=== PATIENT | female | born 2000 | race Caucasian/White ===

== ENCOUNTER 2023-08-03 21:48 | Emergency (ER) | payer MEDICARE ==
[~2023-08-03] VITALS: Ht 165.1 cm; Wt 127.0 kg
== END 2023-08-03 23:14 | disposition home or self-care (01) ==
LOC: ED 21:48
DX: R20.2 Paresthesia of skin (principal); I10 Essential (primary) hypertension; Z88.0 Allergy status to penicillin; Z88.1 Allergy status to other antibiotic agents; Z88.5 Allergy status to narcotic agent; Z88.8 Allergy status to other drugs, medicaments and biological substances

== ENCOUNTER 2024-04-06 17:52 | Emergency (ER) | payer BC, OTHER ==
[~2024-04-06] VITALS: Ht 165.1 cm; Wt 136.1 kg
[2024-04-06 18:59] LABS: BILIRUBIN Negative (Negative); BLOOD Negative (Negative); CLARITY Cloudy (Clear); COLOR Yellow (Yellow); GLUCOSE 3+ (Negative); KETONE Trace (Negative); LEUKO ESTERASE 1+ (Negative); NITRITE Negative (Negative); PH 5.5 (4.5-8.0); SPECIFIC GRAVITY >= 1.030 (1.001-1.030); UROBILINOGEN 0.2 E.U./dl (0.0-1.0)
[2024-04-06 19:07] LABS: VENOUS BLOOD GAS O2 SAT 90.8 % (60.0-85.0)
[2024-04-06 19:08] LABS: BASO # 0.1 10*3/uL (0.0-0.1); BASO % 0.6 % (0.0-1.0); EOS # 0.1 10*3/uL (0.0-0.4); EOS % 1.1 % (1.0-4.0); HEMATOCRIT 44.6 % (37.0-47.0); LYMPH # 3.4 10*3/uL (1.3-4.4); LYMPH % 31.7 % (27.0-41.0); MEAN CELL VOLUME 76.5 fl (81.0-99.0); MEAN CORPUSCULAR HGB CONC 32.7 g/dl (33.0-37.0); MEAN PLATELET VOLUME 10.1 fl (9.6-12.3); MONO # 0.9 10*3/uL (0.1-1.0); NEUT # 6.3 10*3/uL (2.3-7.9); NEUT % 58.2 % (47.0-73.0); PLATELET COUNT AUTOMATED 282 10*3/uL (130-400); RED BLOOD COUNT 5.83 10*6/uL (4.10-5.10); RED CELL DISTRI WIDTH 14.2 % (0-14.5); WHITE BLOOD COUNT 10.9 10*3/uL (4.8-10.8)
[2024-04-06 19:10] LABS: BACTERIA 1+; MUCOUS 1+; RBC 0-2 rbc/hpf (0-2); WBC 16-20 wbc/hpf (0-5)
[2024-04-06] MEDS ORDERED: SODIUM CHLORIDE 0.9% 1,000 ML IV SCH (19:20)
[2024-04-06 19:23] LABS: ACT PARTIAL THROMBO TIME 28.6 SECONDS (20.0-32.1)
[2024-04-06 19:29] LABS: ALKALINE PHOSPHATASE 138 U/L (46-116); BUN 9 mg/dl (9-23); CHLORIDE 102 mmol/L (98-107); POTASSIUM 4.1 mmol/L (3.4-5.1); SGPT/ALT 47 U/L (5-49); TOTAL PROTEIN 7.7 gm/dL (6.0-8.0)
[2024-04-06] MEDS ORDERED: INSULIN REGULAR, HUMAN 1 UNIT/0.01 ML IV ONE (19:35)
[2024-04-06] MEDS ORDERED: Nitrofurantoin Monohydrate/N 100 MG CAP PO ONE (20:50)
== END 2024-04-06 22:03 | disposition home or self-care (01) ==
LOC: ED 17:52
PROVIDERS: Nurse Practitioner
DX: E11.65 Type 2 diabetes mellitus with hyperglycemia (principal); N39.0 Urinary tract infection, site not specified; I10 Essential (primary) hypertension; R10.2 Pelvic and perineal pain; Z88.0 Allergy status to penicillin; Z88.1 Allergy status to other antibiotic agents; Z88.5 Allergy status to narcotic agent; Z88.8 Allergy status to other drugs, medicaments and biological substances; Z87.891 Personal history of nicotine dependence

== ENCOUNTER → 2024-04-08 | Outpatient (CLI) | payer BC, OTHER | END | disposition home or self-care (01) | LOC: WOUNDCARE 01:17 → LAB 01:17 | PROVIDERS: ATTEND Nurse Practitioner Family | DX: E11.621 Type 2 diabetes mellitus with foot ulcer (principal); L97.511 Non-pressure chronic ulcer of other part of right foot limited to breakdown of skin; L84 Corns and callosities; E11.65 Type 2 diabetes mellitus with hyperglycemia; I10 Essential (primary) hypertension; E66.01 Morbid (severe) obesity due to excess calories; F32.A Depression, unspecified; F41.9 Anxiety disorder, unspecified; F17.210 Nicotine dependence, cigarettes, uncomplicated; Z68.42 Body mass index [BMI] 45.0-49.9, adult; Z79.4 Long term (current) use of insulin; Z79.899 Other long term (current) drug therapy ==

== ENCOUNTER → 2024-04-10 | Outpatient (CLI) | payer BC, OTHER | END | disposition home or self-care (01) | LOC: LAB 08:37 | PROVIDERS: ATTEND Registered Nurse | DX: E11.9 Type 2 diabetes mellitus without complications (principal); R00.0 Tachycardia, unspecified ==

== ENCOUNTER → 2024-04-14 | Outpatient (CLI) | payer BC, OTHER | END | disposition home or self-care (01) | LOC: WOUNDCARE 02:42 | PROVIDERS: ATTEND Nurse Practitioner Family | DX: E11.621 Type 2 diabetes mellitus with foot ulcer (principal); L97.511 Non-pressure chronic ulcer of other part of right foot limited to breakdown of skin; E11.65 Type 2 diabetes mellitus with hyperglycemia; E66.01 Morbid (severe) obesity due to excess calories; I10 Essential (primary) hypertension; F17.200 Nicotine dependence, unspecified, uncomplicated; F32.A Depression, unspecified; F41.9 Anxiety disorder, unspecified; Z68.42 Body mass index [BMI] 45.0-49.9, adult ==

== ENCOUNTER → 2024-04-16 | Outpatient (CLI) | payer BC, OTHER ==
[~2024-04-16] MED LIST: ADMELOG100 UNIT/1 SQ; BUSPIRONE HCL15 MG PO; CLEOCIN HCL300 MG PO; DULOXETINE HCL60 MG PO; HALOPERIDOL2 M1 PO; HYDROXYZINE PAM50 MG PO; INSULIN LI100 UNIT/1 SQ; LANTUS100 UNIT/1 SQ; LISINOPRIL40 MG PO; METOPROLOL SUCC25 M2 PO; MINIPRESS2 M1 PO; MIRTAZAPINE15 M2 PO; PANTOPRAZOLE SO40 MG PO; REXULTI2 MG PO; SEROQUEL XR200 MG PO; SILVADENE,SSD C50 GM T
== END | disposition home or self-care (01) ==
LOC: WOUNDCARE 15:57
PROVIDERS: ATTEND Nurse Practitioner Family
DX: E11.621 Type 2 diabetes mellitus with foot ulcer (principal); L97.511 Non-pressure chronic ulcer of other part of right foot limited to breakdown of skin; L84 Corns and callosities; E11.65 Type 2 diabetes mellitus with hyperglycemia; I10 Essential (primary) hypertension; E66.01 Morbid (severe) obesity due to excess calories; F32.A Depression, unspecified; F41.9 Anxiety disorder, unspecified; F17.210 Nicotine dependence, cigarettes, uncomplicated; Z68.42 Body mass index [BMI] 45.0-49.9, adult; Z79.4 Long term (current) use of insulin; Z79.899 Other long term (current) drug therapy

== ENCOUNTER 2024-04-19 09:23 | Inpatient (IN) | payer BC, OTHER ==
[~2024-04-19] VITALS: Ht 165.1 cm; Wt 138.3 kg
[2024-04-19 09:29] VITALS: BP 131/100
[2024-04-19 09:34] VITALS: BP 148/89
[2024-04-19 10:14] LABS: BASO % 0.5 % (0.0-1.0); EOS # 0.1 10*3/uL (0.0-0.4); EOS % 1.4 % (1.0-4.0); HEMATOCRIT 41.7 % (37.0-47.0); LYMPH # 1.5 10*3/uL (1.3-4.4); LYMPH % 25.9 % (27.0-41.0); MEAN CELL VOLUME 78.1 fl (81.0-99.0); MEAN CORPUSCULAR HGB 25.1 pg (27.0-31.0); MEAN CORPUSCULAR HGB CONC 32.1 g/dl (33.0-37.0); MEAN PLATELET VOLUME 10.2 fl (9.6-12.3); MONO # 0.7 10*3/uL (0.1-1.0); MONO % 11.4 % (3.0-9.0); NEUT # 3.4 10*3/uL (2.3-7.9); NEUT % 60.4 % (47.0-73.0); PLATELET COUNT AUTOMATED 250 10*3/uL (130-400); RED BLOOD COUNT 5.34 10*6/uL (4.10-5.10); WHITE BLOOD COUNT 5.7 10*3/uL (4.8-10.8)
[2024-04-19] MEDS ORDERED: Dexamethasone Sodium Phospha 20 MG/5 ML VIAL IV ONE (10:15)
[2024-04-19] MEDS ORDERED: Vancomycin Hydrochloride 250 ML IV ONE (10:15)
[2024-04-19 10:33] LABS: BUN 12 mg/dl (9-23); CHLORIDE 102 mmol/L (98-107); POTASSIUM 4.7 mmol/L (3.4-5.1)
[2024-04-19] MEDS ORDERED: SODIUM CHLORIDE 0.9% 1,000 ML IV ONE (10:50)
[2024-04-19] MEDS ORDERED: ACETAMINOPHEN 325 MG TAB PO PRN (11:10)
[2024-04-19] MEDS ORDERED: Magnesium Hydroxide 30 ML UDC PO PRN (11:10)
[2024-04-19] MEDS ORDERED: ACETAMINOPHEN 650 MG SUPP R PRN (11:10)
[2024-04-19] MEDS ORDERED: BISACODYL 10 MG SUPP R PRN (11:10)
[2024-04-19] MEDS ORDERED: BISACODYL 5 MG TAB PO PRN (11:10)
[2024-04-19] MEDS ORDERED: Ondansetron Hydrochloride 4 MG/2 ML VIAL IV PRN (11:10)
[2024-04-19] MEDS ORDERED: BUSPIRONE HCL15 MG PO (13:09)
[2024-04-19] MEDS ORDERED: HALOPERIDOL2 M1 PO (13:09)
[2024-04-19] MEDS ORDERED: HYDROXYZINE PAM50 MG PO (13:10)
[2024-04-19] MEDS ORDERED: MINIPRESS2 M1 PO (13:10)
[2024-04-19] MEDS ORDERED: LANTUS100 UNIT/1 SQ (13:12)
[2024-04-19] MEDS ORDERED: DULOXETINE HCL60 MG PO (13:13)
[2024-04-19] MEDS ORDERED: INSULIN LI100 UNIT/1 SQ (13:13)
[2024-04-19] MEDS ORDERED: METOPROLOL SUCC25 M2 PO (13:14)
[2024-04-19] MEDS ORDERED: MIRTAZAPINE15 M2 PO (13:14)
[2024-04-19] MEDS ORDERED: LISINOPRIL40 MG PO (13:14)
[2024-04-19] MEDS ORDERED: PANTOPRAZOLE SO40 MG PO (13:15)
[2024-04-19] MEDS ORDERED: REXULTI2 MG PO (13:15)
[2024-04-19] MEDS ORDERED: SEROQUEL XR200 MG PO (13:16)
[2024-04-19] MEDS ORDERED: DEXTROSE 10 % IN WATER 250 ML IV PRN (13:20)
[2024-04-19 13:59] VITALS: BP 124/59
[2024-04-19 16:00] VITALS: BP 129/63
[2024-04-19] MEDS ORDERED: INSULIN LISPRO 1 UNIT/0.01 ML SQ SCH (16:30)
[2024-04-19] MEDS ORDERED: Vancomycin Hydrochloride 1,000 MG in SODIUM CHLORIDE 0.9% 250 ML IV SCH (18:00)
[2024-04-19 20:00] VITALS: BP 110/55
[2024-04-19] MEDS ORDERED: FOAM BANDAGE 5X5 T ONE (20:31)
[2024-04-19] MEDS ORDERED: busPIRone Hydrochloride 15 MG TAB PO SCH (22:00)
[2024-04-19] MEDS ORDERED: Doxycycline Hyclate 100 MG CAP PO SCH (22:00)
[2024-04-19] MEDS ORDERED: hydrOXYzine pamoate 25 MG CAP PO SCH (22:00)
[2024-04-19] MEDS ORDERED: SILVER SULFADIAZINE 25 GM TUBE T SCH (22:00)
[2024-04-19] MEDS ORDERED: LIDOCAINE 5% ANORECTAL CREAM T SCH (22:00)
[2024-04-19] MEDS ORDERED: BREXPIPRAZOLE 2 MG TABLET PO SCH (22:00)
[2024-04-19] MEDS ORDERED: Duloxetine Hydrochloride 60 MG CAP PO SCH (22:00)
[2024-04-19] MEDS ORDERED: HALOPERIDOL 1 MG TAB PO SCH (22:00)
[2024-04-19] MEDS ORDERED: QUETIAPINE FUMARATE 100 MG TAB PO SCH (22:00)
[2024-04-19] MEDS ORDERED: Pantoprazole Sodium 40 MG TAB PO SCH (22:00)
[2024-04-19] MEDS ORDERED: Prazosin Hydrochloride 1 MG CAP PO SCH (22:00)
[2024-04-19] MEDS ORDERED: Mirtazapine 15 MG TAB PO SCH (22:00)
[2024-04-19] MEDS ORDERED: Insulin Glargine, Recombinan 1 UNIT/0.01 ML SC SCH (22:00)
[2024-04-20] VITALS: BP 114/58; BP 126/66
[2024-04-20 05:53] LABS: VITAMIN D, 25-HYDROXY 37.9 ng/mL (30-100)
[2024-04-20 05:56] LABS: BUN 13 mg/dl (9-23); CHLORIDE 101 mmol/L (98-107); CHOLESTEROL 171 mg/dL (<200); LDL CHOLESTEROL 100 mg/dL (9-159); POTASSIUM 4.4 mmol/L (3.4-5.1); TRIGLYCERIDES 138 mg/dl (<150)
[2024-04-20 06:14] LABS: BASO % 0.3 % (0.0-1.0); EOS % 0.1 % (1.0-4.0); HEMATOCRIT 41.1 % (37.0-47.0); LYMPH % 19.1 % (27.0-41.0); MEAN CELL VOLUME 77.7 fl (81.0-99.0); MEAN CORPUSCULAR HGB 25.5 pg (27.0-31.0); MEAN CORPUSCULAR HGB CONC 32.8 g/dl (33.0-37.0); MEAN PLATELET VOLUME 10.5 fl (9.6-12.3); MONO # 0.7 10*3/uL (0.1-1.0); MONO % 6.8 % (3.0-9.0); NEUT # 7.6 10*3/uL (2.3-7.9); NEUT % 73.2 % (47.0-73.0); PLATELET COUNT AUTOMATED 297 10*3/uL (130-400); RED BLOOD COUNT 5.29 10*6/uL (4.10-5.10); RED CELL DISTRI WIDTH 14.4 % (0-14.5); WHITE BLOOD COUNT 10.3 10*3/uL (4.8-10.8)
[2024-04-20 06:19] LABS: ACT PARTIAL THROMBO TIME 27.3 SECONDS (20.0-32.1)
[2024-04-20 08:00] VITALS: BP 122/62
[2024-04-20] MEDS ORDERED: LISINOPRIL 40 MG TAB PO SCH (10:00)
[2024-04-20] MEDS ORDERED: METOPROLOL SUCCINATE XR 25 MG TAB PO SCH (10:00)
[2024-04-20] MEDS ORDERED: Enoxaparin Sodium 40 MG/0.4 ML SYR SC SCH (10:00)
[2024-04-20 11:30] VITALS: BP 126/64
[2024-04-20] MEDS ORDERED: CLEOCIN HCL300 MG PO ×2 (12:24→14:36)
[2024-04-20] MEDS ORDERED: SILVADENE,SSD C50 GM T (12:24)
[2024-04-20] MEDS ORDERED: LANTUS100 UNIT/1 SQ (12:24)
[2024-04-20] MEDS ORDERED: ADMELOG100 UNIT/1 SQ (12:24)
== END 2024-04-20 12:33 | disposition home or self-care (01) | DRG 638 ==
LOC: ED 09:23 → 4E 10:55 → EDHOLD 10:55 → 4E 14:59
PROVIDERS: Internal Medicine; Student in an Organized Health Care Education/Training Program; ADMIT Internal Medicine; ATTEND Internal Medicine
DX: E11.65 Type 2 diabetes mellitus with hyperglycemia (principal); E87.1 Hypo-osmolality and hyponatremia; Z68.42 Body mass index [BMI] 45.0-49.9, adult; L97.419 Non-pressure chronic ulcer of right heel and midfoot with unspecified severity; E11.621 Type 2 diabetes mellitus with foot ulcer; B95.1 Streptococcus, group B, as the cause of diseases classified elsewhere; E66.01 Morbid (severe) obesity due to excess calories; I10 Essential (primary) hypertension; D50.9 Iron deficiency anemia, unspecified; F41.8 Other specified anxiety disorders; S90.921A Unspecified superficial injury of right foot, initial encounter; Z88.0 Allergy status to penicillin; Z88.8 Allergy status to other drugs, medicaments and biological substances; Z82.49 Family history of ischemic heart disease and other diseases of the circulatory system; Z79.4 Long term (current) use of insulin; Z79.899 Other long term (current) drug therapy; X58.XXXA Exposure to other specified factors, initial encounter; Y93.89 Activity, other specified; Y92.89 Other specified places as the place of occurrence of the external cause; Y99.8 Other external cause status

== ENCOUNTER 2024-04-23 16:10 | Emergency (ER) | payer BC, OTHER ==
[~2024-04-23] VITALS: Ht 165.1 cm; Wt 140.6 kg
[2024-04-23] MEDS ORDERED: SODIUM CHLORIDE 0.9% 1,000 ML IV ONE (18:05)
[2024-04-23] MEDS ORDERED: hydrOXYzine pamoate 25 MG CAP PO ONE (18:05)
[2024-04-23 18:24] LABS: BASO # 0.1 10*3/uL (0.0-0.1); BASO % 0.4 % (0.0-1.0); EOS # 0.2 10*3/uL (0.0-0.4); EOS % 1.4 % (1.0-4.0); HEMATOCRIT 43.5 % (37.0-47.0); LYMPH # 4.3 10*3/uL (1.3-4.4); LYMPH % 37.5 % (27.0-41.0); MEAN CORPUSCULAR HGB 25.3 pg (27.0-31.0); MEAN CORPUSCULAR HGB CONC 32.4 g/dl (33.0-37.0); MEAN PLATELET VOLUME 9.9 fl (9.6-12.3); MONO # 0.8 10*3/uL (0.1-1.0); NEUT % 53.3 % (47.0-73.0); PLATELET COUNT AUTOMATED 316 10*3/uL (130-400); RED BLOOD COUNT 5.58 10*6/uL (4.10-5.10); RED CELL DISTRI WIDTH 13.7 % (0-14.5); WHITE BLOOD COUNT 11.3 10*3/uL (4.8-10.8)
[2024-04-23 18:38] LABS: BILIRUBIN Negative (Negative); BLOOD 2+ (Negative); CLARITY Clear (Clear); COLOR Yellow (Yellow); GLUCOSE 2+ (Negative); KETONE Negative (Negative); LEUKO ESTERASE 1+ (Negative); NITRITE Negative (Negative); SPECIFIC GRAVITY 1.015 (1.001-1.030); UROBILINOGEN 0.2 E.U./dl (0.0-1.0)
[2024-04-23 18:41] LABS: BUN 11 mg/dl (9-23); CHLORIDE 103 mmol/L (98-107); POTASSIUM 4.3 mmol/L (3.4-5.1)
[2024-04-23 18:43] LABS: YEAST 1+
[2024-04-23 18:44] LABS: EPITHELIAL CELLS TNTC; RBC 21-30 rbc/hpf (0-2); WBC 16-20 wbc/hpf (0-5)
[2024-04-23] MEDS ORDERED: VISTARIL25 MG PO (18:50)
[2024-04-23] MEDS ORDERED: FLUCONAZOLE 100 MG TAB PO ONE (18:50)
== END 2024-04-23 19:11 | disposition home or self-care (01) ==
LOC: ED 16:10
PROVIDERS: Emergency Medicine
DX: B37.31 Acute candidiasis of vulva and vagina (principal); E11.9 Type 2 diabetes mellitus without complications; I10 Essential (primary) hypertension; F17.290 Nicotine dependence, other tobacco product, uncomplicated; Z88.0 Allergy status to penicillin; Z88.1 Allergy status to other antibiotic agents; Z88.5 Allergy status to narcotic agent; Z88.8 Allergy status to other drugs, medicaments and biological substances; Z79.4 Long term (current) use of insulin; Z90.89 Acquired absence of other organs

== ENCOUNTER → 2024-05-13 | Outpatient (CLI) | payer BC, OTHER ==
[~2024-05-13] MED LIST changes: +VISTARIL25 MG PO
[2024-05-13 17:07] LABS: BASO # 0.1 10*3/uL (0.0-0.1); BASO % 0.8 % (0.0-1.0); EOS # 0.3 10*3/uL (0.0-0.4); EOS % 2.7 % (1.0-4.0); HEMATOCRIT 44.1 % (37.0-47.0); MEAN CELL VOLUME 78.8 fl (81.0-99.0); MEAN CORPUSCULAR HGB 25.7 pg (27.0-31.0); MEAN CORPUSCULAR HGB CONC 32.7 g/dl (33.0-37.0); MEAN PLATELET VOLUME 9.4 fl (9.6-12.3); MONO # 0.8 10*3/uL (0.1-1.0); MONO % 8.2 % (3.0-9.0); NEUT # 5.1 10*3/uL (2.3-7.9); NEUT % 54.1 % (47.0-73.0); PLATELET COUNT AUTOMATED 341 10*3/uL (130-400); RED CELL DISTRI WIDTH 14.1 % (0-14.5); WHITE BLOOD COUNT 9.5 10*3/uL (4.8-10.8)
[2024-05-13 17:25] LABS: BUN 9 mg/dl (9-23); CHLORIDE 107 mmol/L (98-107); POTASSIUM 4.2 mmol/L (3.4-5.1)
== END | disposition home or self-care (01) ==
LOC: RESCLI 15:49
PROVIDERS: Student in an Organized Health Care Education/Training Program; ATTEND Internal Medicine
DX: J18.9 Pneumonia, unspecified organism (principal); E11.9 Type 2 diabetes mellitus without complications; I10 Essential (primary) hypertension; F32.9 Major depressive disorder, single episode, unspecified; F41.9 Anxiety disorder, unspecified; Z79.899 Other long term (current) drug therapy; Z88.0 Allergy status to penicillin; Z88.8 Allergy status to other drugs, medicaments and biological substances

== ENCOUNTER 2024-07-20 13:32 | Emergency (ER) | payer OTHER ==
[~2024-07-20] VITALS: Ht 165.1 cm; Wt 129.3 kg
[2024-07-20 14:24] LABS: BILIRUBIN Negative (Negative); BLOOD Negative (Negative); CLARITY Clear (Clear); COLOR Yellow (Yellow); GLUCOSE Negative (Negative); KETONE Negative (Negative); LEUKO ESTERASE Negative (Negative); NITRITE Negative (Negative); PH 5.5 (4.5-8.0); UROBILINOGEN 0.2 E.U./dl (0.0-1.0)
[2024-07-20 14:27] LABS: BASO # 0.1 10*3/uL (0.0-0.1); BASO % 0.6 % (0.0-1.0); EOS # 0.3 10*3/uL (0.0-0.4); EOS % 2.5 % (1.0-4.0); HEMATOCRIT 42.3 % (37.0-47.0); MEAN CELL VOLUME 80.7 fl (81.0-99.0); MEAN CORPUSCULAR HGB 26.1 pg (27.0-31.0); MEAN CORPUSCULAR HGB CONC 32.4 g/dl (33.0-37.0); MEAN PLATELET VOLUME 10.1 fl (9.6-12.3); MONO # 0.6 10*3/uL (0.1-1.0); MONO % 6.3 % (3.0-9.0); NEUT # 5.7 10*3/uL (2.3-7.9); NEUT % 55.6 % (47.0-73.0); PLATELET COUNT AUTOMATED 298 10*3/uL (130-400); RED BLOOD COUNT 5.24 10*6/uL (4.10-5.10); RED CELL DISTRI WIDTH 13.8 % (0-14.5); WHITE BLOOD COUNT 10.2 10*3/uL (4.8-10.8)
[2024-07-20 14:32] LABS: URINE AMPHETAMINES Negative (1000ng/ml); URINE BARBITURATES Negative (200ng/ml); URINE BENZODIAZEPINES Negative (200ng/ml); URINE CANNABINOIDS (THC) Positive (50ng/ml); URINE COCAINE Negative (300ng/ml); URINE METHADONE Negative (300ng/ml); URINE OPIATES Negative (300ng/ml); URINE PHENCYCLIDINE Negative (25ng/ml)
[2024-07-20 14:35] LABS: RBC 0-2 rbc/hpf (0-2)
[2024-07-20 14:53] LABS: BUN 10 mg/dl (9-23); CHLORIDE 106 mmol/L (98-107); ETHYL ALCOHOL < 3.0 mg/dl (<3); POTASSIUM 4.3 mmol/L (3.4-5.1)
== END 2024-07-20 16:12 | disposition home or self-care (01) ==
LOC: ED 13:32
PROVIDERS: Nurse Practitioner Family
DX: R56.9 Unspecified convulsions (principal); E11.65 Type 2 diabetes mellitus with hyperglycemia; E87.1 Hypo-osmolality and hyponatremia; D64.9 Anemia, unspecified; I10 Essential (primary) hypertension; F41.9 Anxiety disorder, unspecified; F32.A Depression, unspecified; Z88.0 Allergy status to penicillin; Z88.1 Allergy status to other antibiotic agents; Z88.2 Allergy status to sulfonamides; Z88.8 Allergy status to other drugs, medicaments and biological substances; Z88.5 Allergy status to narcotic agent; Z90.89 Acquired absence of other organs; Z98.890 Other specified postprocedural states; F17.200 Nicotine dependence, unspecified, uncomplicated

== ENCOUNTER → 2024-07-21 | Outpatient (CLI) | payer OTHER | END | disposition home or self-care (01) | LOC: RESCLI 14:34 | PROVIDERS: ATTEND Internal Medicine | DX: E66.01 Morbid (severe) obesity due to excess calories (principal); E11.621 Type 2 diabetes mellitus with foot ulcer; F32.9 Major depressive disorder, single episode, unspecified; K21.9 Gastro-esophageal reflux disease without esophagitis; F41.9 Anxiety disorder, unspecified; I10 Essential (primary) hypertension; Z88.0 Allergy status to penicillin; Z88.1 Allergy status to other antibiotic agents; Z88.5 Allergy status to narcotic agent; Z79.899 Other long term (current) drug therapy; Z98.890 Other specified postprocedural states ==

== ENCOUNTER 2024-07-27 18:20 | Emergency (ER) | payer OTHER ==
[~2024-07-27] VITALS: Ht 165.1 cm; Wt 127.0 kg
[2024-07-27] MEDS ORDERED: methylPREDNISolone sod succ 125 MG VIAL IM ONE (19:00)
[2024-07-27] MEDS ORDERED: Albuterol Sulf/Ipratropium 3 ML VIAL NEB ONE ×2 (19:00→21:20)
[2024-07-27] MEDS ORDERED: DEPAKENE250 M2 PO (19:02)
[2024-07-27 19:15] LABS: BASO # 0.1 10*3/uL (0.0-0.1); BASO % 0.8 % (0.0-1.0); EOS # 0.4 10*3/uL (0.0-0.4); EOS % 3.9 % (1.0-4.0); HEMATOCRIT 39.3 % (37.0-47.0); MEAN CELL VOLUME 79.9 fl (81.0-99.0); MEAN CORPUSCULAR HGB CONC 32.6 g/dl (33.0-37.0); MEAN PLATELET VOLUME 9.7 fl (9.6-12.3); MONO # 0.8 10*3/uL (0.1-1.0); MONO % 8.2 % (3.0-9.0); NEUT # 5.1 10*3/uL (2.3-7.9); NEUT % 50.5 % (47.0-73.0); PLATELET COUNT AUTOMATED 292 10*3/uL (130-400); RED BLOOD COUNT 4.92 10*6/uL (4.10-5.10); RED CELL DISTRI WIDTH 13.7 % (0-14.5); WHITE BLOOD COUNT 10.1 10*3/uL (4.8-10.8)
[2024-07-27] MEDS ORDERED: LORazepam 1 MG TAB PO ONE (19:30)
[2024-07-27 19:34] LABS: BUN 8 mg/dl (9-23); CHLORIDE 104 mmol/L (98-107); POTASSIUM 3.9 mmol/L (3.4-5.1)
[2024-07-27] MEDS ORDERED: PREDNISONE20 M1 PO (22:15)
== END 2024-07-27 22:32 | disposition home or self-care (01) ==
LOC: ED 18:20
PROVIDERS: Nurse Practitioner Family
DX: F41.1 Generalized anxiety disorder (principal); Z20.822 Contact with and (suspected) exposure to COVID-19; J20.8 Acute bronchitis due to other specified organisms; E11.9 Type 2 diabetes mellitus without complications; I10 Essential (primary) hypertension; E66.01 Morbid (severe) obesity due to excess calories; F32.A Depression, unspecified; F17.290 Nicotine dependence, other tobacco product, uncomplicated; Z88.0 Allergy status to penicillin; Z88.8 Allergy status to other drugs, medicaments and biological substances; Z88.5 Allergy status to narcotic agent; Z88.1 Allergy status to other antibiotic agents; Z88.2 Allergy status to sulfonamides; Z79.4 Long term (current) use of insulin; Z79.899 Other long term (current) drug therapy; Z68.30 Body mass index [BMI] 30.0-30.9, adult; Z90.89 Acquired absence of other organs

== ENCOUNTER 2024-08-29 00:09 | Emergency (ER) | payer OTHER ==
[~2024-08-29] VITALS: Ht 165.1 cm; Wt 129.3 kg
[~2024-08-29 00:09] MED LIST changes: +DEPAKENE250 M2 PO; +PREDNISONE20 M1 PO
[2024-08-29] MEDS ORDERED: VIBRAMYCIN100 MG PO (01:24)
[2024-08-29] MEDS ORDERED: Doxycycline Hyclate 100 MG CAP PO ONE (01:25)
[2024-08-29] MEDS ORDERED: Ketorolac Tromethamine 30 MG/ML VIAL IM ONE (01:25)
== END 2024-08-29 01:39 | disposition home or self-care (01) ==
LOC: ED 00:09
DX: H66.91 Otitis media, unspecified, right ear (principal); E11.9 Type 2 diabetes mellitus without complications; I10 Essential (primary) hypertension; F17.200 Nicotine dependence, unspecified, uncomplicated; Z88.0 Allergy status to penicillin; Z88.8 Allergy status to other drugs, medicaments and biological substances; Z88.1 Allergy status to other antibiotic agents; Z88.2 Allergy status to sulfonamides; Z88.5 Allergy status to narcotic agent; Z90.89 Acquired absence of other organs; Z98.890 Other specified postprocedural states